=== PATIENT | male | born 1985 | race African-American/Black ===

== ENCOUNTER 2025-08-13 00:06 | Emergency (ER) | payer OTHER ==
[~2025-08-13] VITALS: Ht 175.3 cm; Wt 96.6 kg
[2025-08-13 00:26] VITALS: TEMP 36.9; O2SAT 98
[2025-08-13 01:03] LABS: BASOPHILS % 0.3 % (0.0-2.0); EOSINOPHILS % 0.6 % (0.0-5.0); HEMATOCRIT. 47.4 % (42.0-52.0); HEMOGLOBIN. 15.8 g/dL (14.0-18.0); LYMPHOCYTES % 7.3 % (20.0-50.0); MEAN PLATELET VOLUME 8.6 fl (7.4-10.4); MONOCYTES % 5.0 % (2.0-8.0); NEUTROPHILS % 86.8 % (40.0-76.0); PLATELET 257 x1000/uL (130-400); RED BLOOD CELL COUNT 5.11 mill/uL (4.7-6.1); RED CELL DISTRIBUTION WIDTH 13.5 % (11.6-14.6)
[2025-08-13 01:19] LABS: CREATININE 1.3 mg/dL (0.6-1.3); UREA NITROGEN BLOOD 12 mg/dL (9-23)
[2025-08-13] MEDS: MAGNESIUM/ALUMINUM HYDROXIDE/SIMETHICONE 30ML UDC PO ONE (02:14)
[2025-08-13] MEDS: ONDANSETRON HCL 4MG/2ML INJ IV ONE (02:14)
[2025-08-13] MEDS: KETOROLAC 15MG/ML VIAL IV ONE ×2 (02:15→04:05)
[2025-08-13 02:17] LABS: PROTEIN TOTAL 8.5 g/dL (6.0-8.3)
[2025-08-13 02:19] LABS: ASPARTATE AMINOTRANSFERASE 24 IU/L (<34); BILIRUBIN DIRECT 0.1 mg/dL (<=3.0); BILIRUBIN TOTAL 0.4 mg/dL (0.1-1.0)
[2025-08-13] MEDS: SODIUM CHLORIDE 0.9% 1,000 ML IV ONE (02:19)
[2025-08-13 02:29] LABS: CLARITY URINE CLEAR (CLEAR); COLOR URINE YELLOW (YELLOW); GLUCOSE URINE NEGATIVE (NEGATIVE); KETONES URINE 1+ (NEGATIVE); LEUKOCYTE ESTERASE URINE NEGATIVE (NEGATIVE); NITRITE URINE NEGATIVE (NEGATIVE); OCCULT BLOOD URINE 3+ (NEGATIVE); PH URINE 5.5 (4.5-8.0); PROTEIN URINE 1+ (NEGATIVE); SPECIFIC GRAVITY URINE 1.022 (1.005-1.030); UROBILINOGEN URINE 0.2 E.U./dL (0.2-1.0)
[2025-08-13] MEDS ORDERED: ONDA4TAB50 MT (03:21)
[2025-08-13] MEDS ORDERED: IBUP-1455 MT (03:21)
[2025-08-13 04:10] VITALS: BP 108/71; PULSE 63; RESP 16; O2SAT 97
[2025-08-13 05:11] LABS: SQUAMOUS EPITHELIAL CELL URINE NONE SEEN /lpf (RARE/1+)
[2025-08-13 05:13] LABS: BACTERIA URINE NONE SEEN; RBC URINE 15-25 /hpf (0-2); WBC URINE 0-2 /hpf (0-2)
== END 2025-08-13 04:14 | disposition home or self-care (01) ==
LOC: ER 00:06
DX: N13.2 Hydronephrosis with renal and ureteral calculous obstruction (principal); R11.2 Nausea with vomiting, unspecified; K59.00 Constipation, unspecified
CPT/HCPCS: 99285; 74176; 96374; 96361; 96375; 80076; 80048; 81003; 83690; 85025; 36415; 93005; 96376; J1885; J2405; J7030